=== PATIENT | male | born 1985 | race Two or more races ===

== ENCOUNTER 2016-06-06 07:20 | Emergency (ER) | payer OTHER ==
[~2016-06-06] VITALS: Ht 185.4 cm; Wt 112.5 kg
[2016-06-06] MEDS ORDERED: LASIX20 MG PO (11:22)
[2016-06-06] MEDS ORDERED: SEROQUEL25 MG PO (11:22)
[2016-06-06] MEDS ORDERED: ARICEPT10 MG PO (11:23)
[2016-06-06] MEDS ORDERED: FLO4 PO (11:23)
[2016-06-06] MEDS ORDERED: RESTORIL30 MG PO (11:23)
[2016-06-06] MEDS ORDERED: CYANOCOBAL1000 MCG/M IM (11:24)
[2016-06-06] MEDS ORDERED: CARVEDILOL3.125 M1 PO (11:25)
[2016-06-06] MEDS ORDERED: METOPROLOL TART25 M1 PO (11:26)
[2016-06-06 11:34] VITALS: BP 124/70
== END 2016-06-06 11:34 | disposition home or self-care (01) ==
LOC: ED 07:20
DX: M54.9 Dorsalgia, unspecified (principal); F43.9 Reaction to severe stress, unspecified
CPT/HCPCS: J1100; J1885

== ENCOUNTER 2019-07-26 07:38 | Emergency (ER) | payer OTHER ==
[~2019-07-26] VITALS: Ht 185.4 cm; Wt 108.9 kg
[~2019-07-26 07:38] MED LIST: ARICEPT10 MG PO; CARVEDILOL3.125 M1 PO; CYANOCOBAL1000 MCG/M IM; FLO4 PO; LASIX20 MG PO; METOPROLOL TART25 M1 PO; RESTORIL30 MG PO; SEROQUEL25 MG PO
[2019-07-26 08:11] VITALS: Ht 185.4 cm; Wt 108.9 kg
[2019-07-26 08:46] VITALS: BP 150/80
== END 2019-07-26 08:46 | disposition home or self-care (01) ==
LOC: ED 07:38
DX: L03.113 Cellulitis of right upper limb (principal); R11.0 Nausea
CPT/HCPCS: Q0162

== ENCOUNTER 2019-07-28 10:13 | Emergency (ER) | payer OTHER ==
[~2019-07-28] VITALS: Ht 185.4 cm; Wt 106.1 kg
[2019-07-28 10:35] VITALS: Ht 185.4 cm; Wt 106.1 kg
[2019-07-28 11:37] VITALS: BP 129/76
== END 2019-07-28 11:37 | disposition home or self-care (01) ==
LOC: ED 10:13
DX: L03.818 Cellulitis of other sites (principal); R53.81 Other malaise; Z02.79 Encounter for issue of other medical certificate